=== PATIENT | male | born 1985 | race Hispanic/Latino ===

== ENCOUNTER 2016-07-27 04:48 | Emergency (ER) | payer SELFPAY ==
[~2016-07-27] VITALS: Ht 160 cm; Wt 77.3 kg
[~2016-07-27 04:48] MED LIST: HYDR-4003 PO
[2016-07-27 04:54] VITALS: BP 135/90; PULSE 83; RESP 20; O2SAT 100
--- NOTE | 2016-07-27 05:02 | ED.REPORT ---
HPI-Chest Pain 40 and Over Date of Service Jul 27, 2016 ED Provider: Horace Muñoz MD A healthy 30 year old male presents to the ED accompanied by his with left- sided chest pain onset 45 minutes prior to arrival, waking him from sleep. The pain is described as "pressure," rated 7/10. The patient also reports shortness of breath, dizziness, and left arm numbness. He denies other symptoms. The patient has never had similar symptoms in the past. He speaks Maltese and his was translating. Nursing Notes Stated Complaint: CHEST PAIN, ARM NUMBNESS Chief Complaint: Chest Pain Nursing Notes Reviewed: Yes Allergies: Coded Allergies: No Known Allergies (Verified Allergy, Unknown, 07/27/16) Scheduled PRN Hydrocodone-Acetaminophen 5-325 mg (Hydrocodone-Acetaminophen 5-325 mg) 1 Each Tablet 1 TABLET PO Q4H PRN PRN For Pain General Time Seen by MD: 04:58 Chief Complaint Chest pain Hx Obtained From: Patient Arrived By: Walk-in Sudden in Onset?: Yes Onset Occurred: 46 - 59 minutes ago Symptom Duration: Since onset Location: : Chest left Quality: Painful, Pressure Severity: Current: Pain level 7 out of 10 Severity: Maximum: Pain level 7 out of 10 Associated with: Reports: Dizziness, Numbness/Tingling (Left arm), Denies: Fever Pertinent Negative: Relieved by nothing Recent Healthcare: No recent doctor visit Similar Sx Previous: No Past Medical History Past Medical History Accidental deep left wrist laceration requiring surgery Past Surgical History Left wrist surgery Family History "blocked arteries" Smoking History Current Every Day Smoker Social History Alcohol Use: 3-5 per day Drug Use: Denies drug use Other Social History: Good social support, , Local resident Occupation Lives with , works as a mechanical project engineer Ambulatory Status Independent Review of Systems Constitutional: Denies: Fever Respiratory: Reports: Shortness of breath, Denies: Non-productive cough Cardiovascular: Reports: Chest pain (Left-sided) GI: Denies: Diarrhea, Vomiting Neurologic: Reports: Dizziness, Numbness (Left arm) Complete sys rev & neg: except as marked. Physical Exam Initial Vital Signs Vital Signs (First) Date Time Temp Pulse Resp B/P Pulse Ox O2 Delivery O2 Flow Rate FiO2 07/27/16 04:54 36.7 83 20 135/90 100 Room Air Initial VS: Reviewed, Vital signs abnormal Head / Eyes: Atraumatic, Normocephalic ENT: Conjunctiva normal, No scleral icterus Extremities: Vascular intact, Neuro intact, No swelling Skin: Warm, Dry, No cyanosis Neurologic: Alert, Oriented, Nonfocal Psychiatric: Mood/affect normal, Behavior normal, Normal thought content General/Constitutional: Awake, Alert Respiratory / Chest: Breath sounds NL, Breath sounds = bilat Resp Distress / Stridor: Positive: Resp distress moderate Wheezing / Retractions: Positive: Accessory muscle use mod (Intermittently) Cardiovascular: Regular rhythm, Heart sounds NL Heart Rate / Rhythm: Positive: Tachycardia No left radial pulse due to previous injury, with scar present Neck: Supple, Full range of motion, No JVD Interpretation & Diagnostics Lab Results Interpretation Result Diagram: 07/27/16 0458 07/27/16 0452 Test 07/27/16 04:52 07/27/16 04:58 Sodium Level 141mEq/L (134-144) Potassium Level 4.0mEq/L (3.5-5.2) Chloride Level 101mEq/L (97-108) Carbon Dioxide Level 23mmol/L (18-29) Blood Urea Nitrogen 11mg/dL (6-20) Creatinine 0.64mg/dL (0.76-1.27) Estimat Glomerular Filtration Rate 154mL/min (>59) Glucose Level 99mg/dL (60-99) Calcium Level 10.1mg/dL (8.5-10.1) Magnesium Level 2.3mg/dL (1.6-2.6) Total Bilirubin 0.3mg/dL (0.0-1.2) Aspartate Amino Transf (AST/SGOT) 87U/L (0-50) Alanine Aminotransferase (ALT/SGPT) 191U/L (0-44) Alkaline Phosphatase 73U/L (25-150) Troponin T < 0.010ug/L (0.0-0.011) Total Protein 8.2g/dL (6.4-8.4) Albumin 4.8g/dL (3.4-5.0) White Blood Count 4.5th/mm3 (3.8-10.1) Red Blood Count 4.85mil/mm3 (4.40-5.80) Hemoglobin 14.8g/dL (13.8-17.2) Hematocrit 42.1% (41.0-50.0) Mean Corpuscular Volume 86.8fL (81-100) Mean Corpuscular Hemoglobin 30.5pg (27.0-35.0) Mean Corpuscular Hemoglobin Concent 35.2% (32.0-37.0) Red Cell Distribution Width 12.4% (12.3-15.4) Platelet Count 213bil/L (150-400) Neutrophils (%) (Auto) 42.1% (40-74) Lymphocytes (%) (Auto) 40.6% (14-46) Monocytes (%) (Auto) 13.0% (4-12) Eosinophils (%) (Auto) 3.6% (0-5) Basophils (%) (Auto) 0.7% (0-3) D-Dimer < 0.50mg/L FEU (<0.50) Pro-B-Type Natriuretic Peptide 25.13pg/mL (0-86) Hold Lewis Top Tube Received (Received) Lab values outside NL range: no clinical significance. Lab Results Interpretation: Normal troponin, normal d-dimer ECG Interpretation ECG Interpretation: Sinus rhythm rate 82 Incomplete right bundle branch block Probable left ventricular hypertrophy Nonspecific ST elevation in leads V1 and V2 Time: 04:55 Interpreted by: ED physician X-Ray Chest Interpretation Chest Xray Interpretation: No pneumothorax Normal x-ray View: Portable, 1 view Interpretation / Wet Read by: Wet read ED physician Re-Eval/Medical Decision Med Decision/Clinical Course Workup for chest pain and respiratory distress was initiated by me on this patient. Portable chest x-ray showed no evidence of pneumothorax or pneumonia. He was given nitroglycerin with relief of his discomfort. His labs are currently pending and his care is being turned over change of shift to Dr. Asia Payne. Source of Hx: Old records Time of Eval: 05:42 Patient Status: Condition improved, Pain resolved Re-Evaluation/Progress Note: Discussed with patient x-ray and EKG results with lab results pending. Patient's pain has resolved although pressure is still present. Discussed with patient plan for transfer of care to Dr. Mckenna at change of shift. Counseled Regarding: Diagnosis Discharge & Departure Shift Change Sign-Out Patient Care Transferred: Yes Discussed Complaint(s): Yes Laboratory Evaluation: Ordered, not yet done Imaging Studies: Imaging discussed Response to Therapy: Improved Primary Impression: Chest pain Chest pain type: unspecified Qualified Code: R07.9 - Chest pain, unspecified Referrals: Carol Almaraz PA-C (PCP) Care Transferred to: Dr. Mckenna Care Transferred at: 06:00 Scribe Attestation Portions of this note were transcribed by Lupe Lovell. I, Dr. Muñoz, personally performed the history, physical exam, and medical decision-making; I reviewed and confirmed the accuracy of the information in the transcribed note. Signed by: Selina Lau, 07/27/2016, 06:05 copies to: Carol Almaraz PA-C, Howard L MD Jul 27, 2016 05:02 LUPE LOVELL Jul 27, 2016 05:09
[2016-07-27 05:14] LABS: BASOPHILS % (AUTO) 0.7 % (0-3); EOSINOPHILS % (AUTO) 3.6 % (0-5); Mean Corpuscular Hemoglobin 30.5 pg (27.0-35.0); Mean Corpuscular Volume 86.8 fL (81-100); NEUTROPHILS % (AUTO) 42.1 % (40-74); Platelet Count 213 bil/L (150-400)
[2016-07-27 05:43] LABS: TROPONIN T < 0.010 ug/L (0.0-0.011)
[2016-07-27 05:54] VITALS: BP 114/80; PULSE 70; O2SAT 100
[2016-07-27 05:57] LABS: Magnesium 2.3 mg/dL (1.6-2.6)
[2016-07-27 08:05] VITALS: BP 120/85; PULSE 74; RESP 16; O2SAT 95
--- NOTE | 2016-07-27 08:53 | DRSVH ---
PROCEDURE: X-RAY CHEST ONE VIEW, PORTABLE ([id number]) INDICATIONS: CHEST PAIN TECHNIQUE: One view of the chest was acquired. COMPARISON: [facility], , CHEST 1VW (PORTABLE), 06/04/2008, 18:36. FINDINGS: Surgical changes and devices: None. Lungs and pleura: No pleural effusions or pneumothorax. Lungs are clear. Mediastinum: Mediastinal contours appear normal. Heart size is normal. Bones and chest wall: No suspicious bony lesions. Overlying soft tissues appear unremarkable. IMPRESSION: No acute cardiopulmonary disease. Dictated by: Himanshu HINKLE Interpreted: Lexii Lane MD on 07/27/2016 at 8:52 Transcribed by: KYLE on 07/27/2016 at 8:52 Approved by: Lexii Lane M.D. on 07/27/2016 at 22:12
== END 2016-07-27 08:06 | disposition home or self-care (01) ==
LOC: SED 04:48
DX: R07.89 Other chest pain (principal); R06.02 Shortness of breath; R42 Dizziness and giddiness; R20.0 Anesthesia of skin; F17.200 Nicotine dependence, unspecified, uncomplicated